=== PATIENT | female | born 1955 | race Caucasian/White ===

== ENCOUNTER 2023-12-28 08:15 | Day surgery (SDC) | payer MEDICARE, BC ==
[2023-12-28] MEDS ORDERED: Propofol 200 MG/20 ML SDV ONE (08:40)
[2023-12-28] MEDS ORDERED: Ketamine 200 MG/20 ML MDV ONE (08:40)
[2023-12-28] MEDS ORDERED: fentaNYL 50 MCG/ML SDV ONE ×2 (08:40)
[2023-12-28] MEDS: Lactated Ringers 1,000 ML IV SCH (08:45)
== END 2023-12-28 09:58 | disposition home or self-care (01) ==
LOC: CC.SDS 08:15
PROVIDERS: ATTEND Family Medicine
DX: K57.31 Diverticulosis of large intestine without perforation or abscess with bleeding (principal); K64.8 Other hemorrhoids
CPT/HCPCS: 00811; 45378; J2704; J3010; J3490; J7120